=== PATIENT | female | born 1955 | race Caucasian/White ===

== ENCOUNTER 2018-07-08 07:50 | Day surgery (SDC) | payer BC ==
[2018-07-04 15:34] VITALS: BMI 42.3
[2018-07-08] MEDS ORDERED: KETOROLAC TROMETHAMINE 30 MG/1 ML VIAL ONE (10:56)
[2018-07-08] MEDS ORDERED: DEXAMETHASONE SOD PHOSPHATE 4 MG/1 ML VIAL ONE (10:56)
[2018-07-08] MEDS ORDERED: ONDANSETRON 4 MG/2 ML VIAL ONE (10:56)
[2018-07-08] MEDS ORDERED: CLINDAMYCIN PHOSPHATE 600 MG/4 ML VIAL ONE ×2 (11:07)
[2018-07-08] MEDS ORDERED: MIDAZOLAM HCL 2 MG/2 ML SINGLE DOSE VIAL ONE ×2 (11:10)
[2018-07-08] MEDS ORDERED: BUPIVACAINE HCL/PF 2.5 MG/ML - 30 ML VIAL IJ ONE (11:40)
[2018-07-08] MEDS ORDERED: EPINEPHrine 1:1,000 1 MG/1 ML - 30ML VIAL (INJECTION) ONE (11:40)
[2018-07-08] MEDS ORDERED: ONDANSETRON 4 MG/2 ML VIAL IVPUSH PRN (11:46)
[2018-07-08] MEDS ORDERED: oxyCODONE HCL 5 MG TABLET PO PRN (11:46)
[2018-07-08] MEDS ORDERED: LACTATED RINGERS SOLUTION 1,000 ML IV SCH (12:00)
[2018-07-08] MEDS ORDERED: BUPIVACAINE HCL/PF 0.25% (2.5MG/ML) 10 ML VIAL IJ ONE (12:52)
[2018-07-08 15:15] VITALS: BP 128/66; PULSE 62; TEMP 97.9
--- NOTE | 2018-07-11 13:12 | OP ---
DATE OF OPERATION: 07/08/2018 LOCATION: [facility] SURGEON: Williams Álvarez MD SECURITIES COUNSELOR: MANISH Santos POSTOPERATIVE DIAGNOSES: 1. Right knee mediolateral meniscal tear. 2. Right knee cartilage injury. 3. Right knee synovitis. POSTOPERATIVE DIAGNOSES: 1. Right knee mediolateral meniscal tear. 2. Right knee cartilage injury. 3. Right knee synovitis. PROCEDURE: 1. Right knee arthroscopy with partial meniscectomy, medial and lateral meniscus. CPT code 41586. 2. Right knee arthroscopy with chondroplasty and abrasoplasty. CPT code 40340. 3. Right knee arthroscopy with synovectomy. CPT code 82837. FINDINGS: 1. Medial meniscus body and posterior horn tear/minor. 2. Lateral meniscus central one-third complete tear with outer third still intact but central one- to two-thirds of the lateral meniscus torn. 3. Synovitis patellofemoral, mediolateral notch area. 4. Diffuse grade 2-3 cartilage injury, medial femoral condyle, antegrade 4 changes, medial femoral condyle, and 2-3 changes medial tibial plateau. 5. ACL and PCL intact. 6. Diffuse grade 1-2 cartilage injury, unilateral joint line. 7. Central grade 2-4 cartilage injury, patella and patellofemoral trochlea. PROCEDURE: Informed consent was obtained. The patient came to the operating room, where the lower extremity was prepped and draped in a sterile fashion. A tourniquet was placed on the upper thigh, but not inflated. Using standard arthroscopic technique, a lateral incision and portal was made to allow for introduction of the camera into the suprapatellar bursa. This was then taken to the medial joint line, where under direct visualization, a medial incision and portal was made. Excessive synovium noted in the medial, lateral and patellofemoral and notch area was removed by an upbiter, shaver and Bovie cautery. This was found to bring in inflammatory tissue into the joint surface, a source of pain and dysfunction. Probing of the medial and lateral meniscus found tears, as described in the findings. These were removed with the upbiter and shaver and taken back to a stable rim. Grade 2 to 3 degenerative changes were treated with a chondroplasty, removing all flaking surfaces with low-setting Bovie along the periphery to prevent further flaking. Grade 4 changes, as noted, were treated with an abrasoplasty, creating a bleeding surface at the bone/cartilage interface. Aggressive debridement with shaver/leigh created bleeding surface. Micro fracture also done when indicated in findings. All areas of the knee were once again reexamined. The knee was then drained and a single suture was placed in all portals. A sterile dressing was placed and the patient was transferred to the recovery room without complication. The PA listed above was present and assisted at surgery. Their presence was absolutely medically necessary for the completion of the procedure. They helped hold the arthroscopy, pass instruments (and implants when indicated) and the procedure could not have been completed without their assistance. WILLIAMS ÁLVAREZ M.D. [id number]
--- NOTE | 2018-07-13 18:28 | PATH ---
Surgical Pathology Report Patient Name: MICHAEL TEE [facility]. Rec. #: [id number] /Age/Gender: 1955 (Age: 63) / F Account: [id number] Location: [facility] AMBUL[facility]ORY Taken: 07/08/2018 Received: 07/08/2018 Reported: 07/13/2018 Physicians: Williams Lanza M.D. Specimen(s) Received RIGHT KNEE SHAVINGS Clinical History Right knee internal derangement Final Diagnosis RIGHT KNEE SHAVINGS: FRAGMENTS OF CARTILAGE AND FIBROSYNOVIAL TISSUE WITH FOCAL MILD CHRONIC INFLAMMATION, REACTIVE AND DEGENERATIVE CHANGE. Electronically Signed Nathan Francis M.D. Gross Description Received in formalin labeled "right knee shavings" are multiple fragments of white-woo fibrocartilaginous soft tissue measuring 4 x 4 x 0.5 cm aggregate. Temper Mill Operator sections are submitted in one cassette. MLSZ/07/11/2018 sansammie/07/11/2018
== END 2018-07-08 15:05 | disposition home or self-care (01) ==
LOC: FASU 07:50
PROVIDERS: ATTEND Orthopaedic Surgery
PROC: 0SBC4ZZ Excision of Right Knee Joint, Percutaneous Endoscopic Approach (ICD-10-PCS; 2018-07-08)
PROC: 0SBC4ZZ Excision of Right Knee Joint, Percutaneous Endoscopic Approach (ICD-10-PCS; 2018-07-08)
PROC: 0SBC4ZZ Excision of Right Knee Joint, Percutaneous Endoscopic Approach (ICD-10-PCS; principal; 2018-07-08 12:43)
DX: S83.241A Other tear of medial meniscus, current injury, right knee, initial encounter (principal); S83.281A Other tear of lateral meniscus, current injury, right knee, initial encounter; S83.8X1A Sprain of other specified parts of right knee, initial encounter; M65.861 Other synovitis and tenosynovitis, right lower leg; X58.XXXA Exposure to other specified factors, initial encounter; Y93.9 Activity, unspecified; Y92.9 Unspecified place or not applicable
CPT/HCPCS: 88304-TC; 94760